=== PATIENT | male | born 1980 | race Caucasian/White ===

== ENCOUNTER 2023-12-24 02:45 | Emergency (ER) | payer OTHER ==
[~2023-12-24] VITALS: Ht 185.4 cm; Wt 68.0 kg
[2023-12-24 03:01] VITALS: BP 141/81; PULSE 74; RESP 16; TEMP 97.4; O2SAT 98
[2023-12-24 03:47] LABS: BASOPHILS % (AUTO) 0.9 % (0.0-2.0); EOSINOPHILS % (AUTO) 0.6 % (0.0-4.0); HEMATOCRIT 42.4 % (36-52); HEMOGLOBIN 14.6 g/dL (12.0-18.0); LYMPHOCYTES # (AUTO) 1.5 K/uL (2.0-11.5); LYMPHOCYTES % (AUTO) 39.4 % (20.5-51.1); MEAN CORPUSCULAR HEMOGLOBIN 29 pg (27-31); MEAN CORPUSCULAR HGB CONC 34 g/dL (33-37); MEAN CORPUSCULAR VOLUME 83.5 fL (80-94); MONOCYTES # (AUTO) 0.5 K/uL (0.8-1.0); MONOCYTES % (AUTO) 14.1 % (1.7-9.3); NEUTROPHILS # (AUTO) 1.7 K/uL (1.8-7.7); PLATELET COUNT (AUTO) 119 K/uL (140-450); RED BLOOD CELL COUNT(AUTO) 5.07 MIL/uL (4.20-6.10); RED CELL DISTRIBUTION WIDTH 14.1 % (11.6-13.7); WHITE BLOOD COUNT (AUTO) 3.7 K/uL (4.8-10.8)
[2023-12-24 04:00] LABS: ANION GAP 11.2 (8-16); CALCIUM 8.9 mg/dL (8.5-10.1); CARBON DIOXIDE 28.8 mmol/L (21-32); CREATININE 0.8 mg/dL (0.6-1.3)
[2023-12-24] MEDS: NACL 0.9% 1,000 ML IV ONE (04:11)
[2023-12-24] MEDS: diphenhydrAMINE 50 MG/ML VIAL IVP ONE (04:12)
[2023-12-24] MEDS: PROCHLORPERAZINE 10 MG/2 ML VIAL IVP ONE (04:13)
[2023-12-24] MEDS: KETOROLAC 30 MG/ML VIAL IVP ONE (04:14)
[2023-12-24] MEDS: LORazepam 2 MG/ML VIAL IVP ONE (04:45)
[2023-12-24] MEDS ORDERED: IBUP-2218 PO (05:49)
[2023-12-24] MEDS ORDERED: ACET-10509 PO (05:49)
[2023-12-24 06:02] VITALS: BP 126/79; PULSE 71; RESP 15; TEMP 97.6; O2SAT 97
== END 2023-12-24 06:02 | disposition home or self-care (01) ==
LOC: MED 02:45
DX: G44.209 Tension-type headache, unspecified, not intractable (principal); Z79.899 Other long term (current) drug therapy
CPT/HCPCS: 36415; 70450; 71045; 80048; 84484; 85025; 93005; 96374; 96375; 99285; J0780; J1200; J1885; J2060; J7030; Q0092